=== PATIENT | female | born 1990 | race Hispanic/Latino ===

== ENCOUNTER 2020-11-20 11:54 | Emergency (ER) | payer OTHER ==
[~2020-11-20] VITALS: Ht 165.1 cm; Wt 55.5 kg
[~2020-11-20 11:54] MED LIST: BACTRIM DS TAB1 EACH PO; CEFDINIR300 MG PO; HUMULIN R100 UNIT/2; KEFLEX125 MG/5 M PO; LANTIS; PYRIDIUM100 MG PO
[2020-11-20] MEDS ORDERED: IBUPROFEN 200 MG TAB PO ONE (12:30)
[2020-11-20] MEDS ORDERED: HYDROCODONE/APAP 5MG-325MG TAB PO ONE (12:30)
[2020-11-20] MEDS ORDERED: ONDANSETRON HCL 4 MG ORAL DISINTEGRATING TAB PO ONE (12:30)
[2020-11-20] MEDS ORDERED: IBUPROFEN 600 MG TAB ONE (12:38)
[2020-11-20] MEDS ORDERED: TYLENOL # 31 EA PO (12:58)
[2020-11-20] MEDS ORDERED: IBUPROFEN IB200 MG PO (12:58)
== END 2020-11-20 13:05 | disposition home or self-care (01) ==
LOC: MERGE 12:11 → FSED 12:11
DX: S42.032A Displaced fracture of lateral end of left clavicle, initial encounter for closed fracture (principal); W18.30XA Fall on same level, unspecified, initial encounter; Y93.01 Activity, walking, marching and hiking; Y92.008 Other place in unspecified non-institutional (private) residence as the place of occurrence of the external cause; E11.9 Type 2 diabetes mellitus without complications; F17.210 Nicotine dependence, cigarettes, uncomplicated
CPT/HCPCS: 73030; 99283; Q0162

== ENCOUNTER 2020-12-13 09:19 | Emergency (ER) | payer OTHER ==
[~2020-12-13] VITALS: Ht 167.6 cm; Wt 55.0 kg
[~2020-12-13 09:19] MED LIST changes: +IBUPROFEN IB200 MG PO; +TYLENOL # 31 EA PO
[2020-12-13] MEDS ORDERED: IBUPROFEN 600 MG TAB PO STA (09:42)
[2020-12-13] MEDS ORDERED: NAPROSYN500 MG PO (09:52)
== END 2020-12-13 09:56 | disposition home or self-care (01) ==
LOC: FSED 09:42
DX: M54.5 Low back pain (principal); M79.18 Myalgia, other site; E11.9 Type 2 diabetes mellitus without complications
CPT/HCPCS: 81003; 81025; 99283

== ENCOUNTER 2021-03-16 13:35 | Emergency (ER) | payer OTHER ==
[~2021-03-16] VITALS: Ht 167.6 cm; Wt 59.0 kg
[~2021-03-16 13:35] MED LIST changes: +NAPROSYN500 MG PO
[2021-03-16] MEDS ORDERED: FAMOTIDINE20 MG PO (13:55)
[2021-03-16] MEDS ORDERED: ONDANSETRON ODT4 MG PO (13:55)
[2021-03-16] MEDS ORDERED: ONDANSETRON HCL 4 MG ORAL DISINTEGRATING TAB PO ONE (14:00)
== END 2021-03-16 14:04 | disposition home or self-care (01) ==
LOC: FSED 13:40
DX: U07.1 COVID-19 (principal); R11.2 Nausea with vomiting, unspecified; E10.65 Type 1 diabetes mellitus with hyperglycemia; Z71.89 Other specified counseling
CPT/HCPCS: 36415; 82948; 99282; Q0162

== ENCOUNTER 2022-12-17 21:28 | Emergency (ER) | payer OTHER ==
[~2022-12-17] VITALS: Ht 167.6 cm; Wt 72.6 kg
[~2022-12-17 21:28] MED LIST changes: +FAMOTIDINE20 MG PO; +ONDANSETRON ODT4 MG PO
[2022-12-17 21:35] VITALS: O2SAT 98
[2022-12-17] MEDS ORDERED: TRAMADOL HCL 50 MG TAB PO ONE (22:00)
[2022-12-17] MEDS ORDERED: NAPROSYN500 MG PO (23:20)
== END 2022-12-17 23:45 | disposition home or self-care (01) ==
LOC: FSED 21:40
DX: S63.681A Other sprain of right thumb, initial encounter (principal); S63.8X1A Sprain of other part of right wrist and hand, initial encounter; W01.190A Fall on same level from slipping, tripping and stumbling with subsequent striking against furniture, initial encounter; Y92.89 Other specified places as the place of occurrence of the external cause; E10.8 Type 1 diabetes mellitus with unspecified complications
CPT/HCPCS: 99284